=== PATIENT | female | born 1990 | race Caucasian/White ===

== ENCOUNTER 2018-03-01 20:37 | Emergency (ER) | payer BC | END 2018-03-01 22:15 | disposition home or self-care (01) | LOC: FTE 20:37 | DX: O9A.211 Injury, poisoning and certain other consequences of external causes complicating pregnancy, first trimester (principal); Y04.8XXA Assault by other bodily force, initial encounter; Z3A.12 12 weeks gestation of pregnancy | CPT/HCPCS: 99283 ==